=== PATIENT | female | born 1960 | race Two or more races ===

== ENCOUNTER 2025-07-08 16:55 | Inpatient (IN) | payer OTHER ==
[~2025-07-08] VITALS: Ht 154.9 cm; Wt 48.5 kg
[2025-07-08] MEDS ORDERED: LEVOTHYROXINE25 MCG PO (17:27)
[2025-07-08] MEDS ORDERED: 0.9 % SODIUM CHLORIDE 1,000 ML IV SCH ×2 (17:45)
--- NOTE | 2025-07-08 17:47 | NUR ---
PACIENTE ALERTA Y ORIENTADA X3, REFIERE VENIR DE PARTE DEL DR. VALIENTE PARA SER ADMITIDA
[2025-07-08 19:02] LABS: BASO % 0.2 % (0.1-1.2); EOS # 0.01 (0.04-0.54); EOS % 0.1 % (0.7-7.0); LYMPH # 1.19 (1.18-3.74); LYMPH % 9.0 % (19.3-53.1); MEAN PLATELET VOLUME 9.80 fl (9.4-12.4); MONO # 0.57 (0.24-0.82); MONO % 4.3 % (4.7-12.5); NEUT # 11.29 (1.56-6.13); NEUT % 85.8 % (34.0-71.1); RED CELL DISTRIBUTION WIDTH 12.7 % (11.6-14.4)
[2025-07-08 19:33] LABS: INR 0.97
--- NOTE | 2025-07-08 19:39 | NUR ---
PACIENTE EVALUADA POR MD QUIEN ORDENA TRATAMIENTO MEDICO, SE LE ORIENTA A PACIENTE SOBRE EL MISMO Y REFIER ENTENDER, SE LE COLECTAN MUESTRAS DE LABORATORIO, SE CANALIZA Y SE LE COLOCAN IV FLUIDS ANGIE ORDEN. SE LE REALIZA EKG Y SE LE PRESENTA A MD
[2025-07-08 19:43] LABS: ALT/SGPT 31 U/L (12-78); AST/SGOT 24 U/L (15-37); BILIRUBIN TOTAL 0.40 mg/dL (0.3-1.2); BUN CREA RATIO 16 (7.0-25.0); CREATININE SERUM 0.83 mg/dL (0.55-1.02); GFR 68.99; GLOBULINA 4.0 G/DL (2.4-3.5); GLUCOSE FASTING 96 mg/dL (65-100); OSMOLALITY SERUM 281 MOSM/KG (275-295)
[2025-07-08] MEDS ORDERED: ACETAMINOPHEN 325 MG TABLET PO PRN (20:00)
[2025-07-08] MEDS ORDERED: MORPHINE SULFATE 2 MG/ML SYRINGE IV PRN (20:00)
[2025-07-08] MEDS ORDERED: KETOROLAC TROMETHAMINE 30 MG VIAL IV PRN (20:00)
[2025-07-08] MEDS ORDERED: CIPROFLOXACIN IN 5 % DEXTROSE 200 ML IV SCH (21:00)
[2025-07-08 21:06] VITALS: BP 135/79
[2025-07-08 21:53] VITALS: BP 132/78; O2SAT 100
[2025-07-08 22:13] LABS: COVID-19 AG NEGATIVE (NEGATIVE)
[2025-07-08 22:52] LABS: URINE APPEARANCE Clear; URINE BILIRRUBIN Negative (NEGATIVE); URINE BLOOD Negative; URINE COLOR Yellow; URINE GLUCOSE Negative (NEGATIVE); URINE KETONE Negative (NEGATIVE); URINE LEUKOCYTE Negative; URINE NITRATE Negative; URINE PROTEIN Negative (NEGATIVE); URINE UROBILINOGEN 0.2 E.U./dl
[2025-07-08 22:56] LABS: URINE BACTERIA 64.8 uL (0.0-1933); URINE EPITHELIAL CELLS 7.2 uL (0.0-38.8); URINE WBC 6.6 uL (0.0-23.2)
[2025-07-08 23:05] LABS: URINE CAST 0.58 uL (0.0-1.40); URINE RBC 0.8 uL (0.0-20.8)
[2025-07-09 01:00] VITALS: BP 121/73; O2SAT 100
[2025-07-09] MEDS ORDERED: LEVOTHYROXINE SODIUM 25 MCG TABLET PO SCH (06:00)
[2025-07-09 08:45] VITALS: BP 151/68; O2SAT 100
[2025-07-09] MEDS ORDERED: FAMOTIDINE/PF 20 MG/2 ML VIAL IV SCH (09:00)
[2025-07-09] MEDS ORDERED: CEFAZOLIN SODIUM 2,000 MG in 0.9 % SODIUM CHLORIDE 100 ML IV SCH (09:45)
[2025-07-09] MEDS ORDERED: ACETAMINOPHEN 500 MG GEL..CAP PO PRN (11:30)
[2025-07-09] MEDS ORDERED: TRANEXAMIC ACID 100MG/1ML (1000MG) AMPUL IV ONE ×2 (13:15)
[2025-07-09] MEDS ORDERED: ONDANSETRON HCL 2 MG/ML VIAL IV PRN (14:45)
[2025-07-09] MEDS ORDERED: SODIUM CHLORIDE 0.45 % 1,000 ML IV SCH (14:45)
[2025-07-09] MEDS ORDERED: ONDANSETRON HCL 2 MG/ML VIAL IV ONE (14:45)
[2025-07-09] MEDS ORDERED: ONDANSETRON 4 MG TAB.RAPDIS PO PRN (14:45)
[2025-07-09] MEDS ORDERED: PROMETHAZINE HCL 50 MG/ML AMPUL IM PRN (14:45)
[2025-07-09] MEDS ORDERED: TRAMADOL HCL 50 MG TABLET PO PRN (14:45)
[2025-07-10 00:10] VITALS: BP 133/84; O2SAT 95
[2025-07-10 08:07] VITALS: BP 129/78; O2SAT 96
[2025-07-10 08:13] LABS: ALT/SGPT 21.0 U/L (12-78); AST/SGOT 22.0 U/L (15-37); BILIRUBIN TOTAL 0.56 mg/dL (0.3-1.2); BUN CREA RATIO 10.0 (7.0-25.0); CREATININE SERUM 0.73 mg/dL (0.55-1.02); GFR 80.01; GLOBULINA 3.1 G/DL (2.4-3.5); GLUCOSE FASTING 87.0 mg/dL (65-100); OSMOLALITY SERUM 280.0 MOSM/KG (275-295)
[2025-07-10] MEDS ORDERED: RIVAROXABAN 10 MG TAB PO SCH (09:00)
[2025-07-10] MEDS ORDERED: PANTOPRAZOLE SODIUM 40 MG TABLET.DR PO SCH (09:00)
[2025-07-10 10:55] LABS: BASO % 0.4 % (0.1-1.2); EOS # 0.23 (0.04-0.54); EOS % 3.3 % (0.7-7.0); LYMPH # 1.07 (1.18-3.74); LYMPH % 15.6 % (19.3-53.1); MEAN PLATELET VOLUME 10.40 fl (9.4-12.4); MONO # 0.39 (0.24-0.82); MONO % 5.7 % (4.7-12.5); NEUT # 5.14 (1.56-6.13); NEUT % 74.7 % (34.0-71.1); RED CELL DISTRIBUTION WIDTH 12.9 % (11.6-14.4)
[2025-07-10] MEDS ORDERED: IRON FUM,PS/FOLIC/BCOMP,C NO.9 1 CAP CAPSULE PO NR (13:30)
[2025-07-10 15:00] VITALS: BP 115/66; O2SAT 95
[2025-07-11] VITALS: BP 96/60; O2SAT 96
[2025-07-11 08:11] VITALS: BP 120/71; O2SAT 97
[2025-07-11] MEDS ORDERED: IRON FUM,PS/FOLIC/BCOMP,C NO.9 1 CAP CAPSULE PO SCH (09:00)
[2025-07-11] MEDS ORDERED: INTEGRA PLUS C1 EACH PO (11:02)
[2025-07-11] MEDS ORDERED: XARELTO10 MG PO (11:02)
[2025-07-11] MEDS ORDERED: TRAM1TAB98 PO (11:02)
== END 2025-07-11 15:30 | disposition home or self-care (01) | DRG 482 ==
LOC: ER 16:55 → SURH 19:58
PROVIDERS: General Practice; Orthopaedic Surgery; Physician Assistant Medical; ADMIT Internal Medicine; ATTEND Internal Medicine
PROC: 0QS604Z Reposition Right Upper Femur with Internal Fixation Device, Open Approach (ICD-10-PCS; principal; 2025-07-09 09:00)
DX: S72.001A Fracture of unspecified part of neck of right femur, initial encounter for closed fracture (principal); W13.3XXA Fall through floor, initial encounter; E03.9 Hypothyroidism, unspecified